=== PATIENT | female | born 1990 | race Two or more races ===

== ENCOUNTER 2024-04-08 14:29 | Emergency (ER) | payer MEDICAID, OTHER ==
[~2024-04-08] VITALS: Ht 162.6 cm; Wt 123.0 kg
[2024-04-08 14:39] VITALS: PULSE 80; RESP 16; O2SAT 100
[2024-04-08 15:16] LABS: Urine Bacteria None Seen /hpf (None Seen)
--- NOTE | 2024-04-08 15:16 | ED.PDOC ---
GI ASSESSMENT HPI Comments 33 y/o F, presents to the ED fpr CC of nausea/vomiting. Patient states, that she is currently and has been experiencing nausea/vomiting with associated LLQ pain since 5 weeks gestation. Patient relays, she has a PMHX of hyperemesis with past and believes current symptoms to be in association. Patient comments on, currently not having an [employer] provider. Patient denies abdominal pain, abdominal cramping, vaginal bleeding, or diarrhea. No other symptoms or modifying factors at this time. Chief Complaint: Nausea/Vomiting Time Seen by MD: 15:00 Reviewed Notes: Nurses Notes, Medications, Allergies Allergies: Coded Allergies: NO KNOWN ALLERGIES (Unverified , 04/08/24) Home Meds Active Scripts Nitrofurantoin Monohydrate Mac (Macrobid) 100 Mg Cap, 100 MG PO BID for 5 Days, #10 CAP Prov:PAUL HOOKS MD 04/08/24 Doxylamine-Pyridoxine (DICLEGIS) 1 Tab Tab, 1 TAB OR Q12HP PRN for 10 Days, #20 TAB Prov:PAUL HOOKS MD 04/08/24 Information Source: Patient Mode of Arrival: Ambulatory Timing: Days Duration: Since onset Prehospital treatment: None Quality: None Vomitus: Watery Stool: Normal Severity: Moderate Recent: None Recent Hx of: None Pain Location: LLQ Modifying Factors: Nothing Associated sign and symptoms: None Past Medical History PAST MEDICAL HISTORY: Denies Surgical History: Denies all surgeries [employer] History: Unknown Family History Family History: Unknown Social History Smoker: Non-Smoker Alcohol: Denies ETOH Use Drugs: Denies Drug Use Lives In: Home Constitutional: denies: chills, diaphoresis, fatigue, fever, malaise, sweats, weakness, others EENTM: denies: blurred vision, double vision, ear bleeding, ear discharge, ear drainage, ear pain, ear ringing, eye pain, eye redness, hearing loss, mouth pain, mouth swelling, nasal discharge, nose bleeding, nose congestion, nose pain, photophobia, tearing, throat pain, throat swelling, voice changes, others Respiratory: denies: cough, hemoptysis, orthopnea, SOB at rest, shortness of breath, SOB with excertion, stridor, wheezing, others Cardiovascular: denies: chest pain, dizzy spells, diaphoresis, Dyspnea on exertion, edema, irregular heart beat, left arm pain, lightheadedness, palpitations, PND, syncope, others Gastrointestinal: reports: nausea, vomiting; denies: abdomen distended, abdominal pain, blood streaked bowels, constipated, diarrhea, dysphagia, difficulty swallowing, hematemesis, melena, poor appetite, poor fluid intake, rectal bleeding, rectal pain, others Genitourinary: denies: abnormal vagina bleeding, burning, dyspareunia, dysuria, flank pain, frequency, hematuria, incontinence, pain, , vagina discharge, urgency, others Neurological: denies: dizziness, fainting, headache, left sided numbness, left sided weakness, numbness, paresthesia, pre-existing deficit, right sided numbness, right sided weakness, seizure, speech problems, tingling, tremors, weakness, others Musculoskeletal: denies: back pain, gout, joint pain, joint swelling, muscle pain, muscle stiffness, neck pain, others Integumetry: denies: bruises, change in color, change in hair/nails, dryness, laceration, lesions, lumps, rash, wounds, others Allergic/Immunocompromised: denies: Difficulty Healing, Frequent Infections, Hives, Itching, others Hematologic/Lymphatic: denies: anemia, blood clots, easy bleeding, easy bruising, swollen glands, others Endocrine: denies: excessive hunger, excessive sweating, excessive thirst, excessive urination, flushing, intolerance to cold, intolerance to heat, unexplained weight gain, unexplained weight loss, others Psychiatric: denies: anxiety, bipolar disorder, depression, hopeless, panic disorder, schizophrenia, sleepless, suicidal, others All Other Systems: Reviewed and Negative Physical Exam General Appearance: No Apparent Distress HEENT: Normal ENT Inspection, Pharynx Normal, TMs Normal Neck: Full Range of Motion, Non-Tender, Normal, Normal Inspection Respiratory: Chest Non-Tender, Lungs Clear, No Accessory Muscle Use, No Respiratory Distress, Normal Breath Sounds Cardiovascular: No Edema, No JVD, No Murmur, No Gallop, Normal Peripheral Pulses, Regular Rate/Rhythm Breast Exam: Deferred Gastrointestinal: No Organomegaly, Non Tender, No Pulsatile Mass, Normal Bowel Sounds, Soft Genitalia: Deferred Pelvic: Deferred Rectal: Deferred Extremities: No calf tenderness, Normal capillary refill, Normal inspection, Normal range of motion, Non-tender, No pedal edema Musculoskeletal : Apperance: Normal Neurologic: Alert, peanut butter maker II-XII nml as Tested, No Motor Deficits, Normal Affect, Normal Mood, No Sensory Deficits Cerebellar Function: Normal Reflexes: Normal Skin: Dry, Normal Color, Warm Lymphatic: No Adenopathy Was a procedure done? Was a procedure done?: No GI differential Dx Differential Diagnosis: Gastritis/PUD, Gastroenteritis, Electrolyte Imbalance, Food Poisoning, Bacterial, Viral X-Ray, Labs, Meds, VS Vital Signs Date Time Temp Pulse Resp B/P (MAP) Pulse Ox O2 Delivery O2 Flow Rate FiO2 04/08/24 17:04 98.5 84 16 115/68 (84) 100 98.5 04/08/24 14:39 80 16 100 Room Air* 0 21 04/08/24 14:39 98.3 80 16 113/72 (86) 100 04/08/24 14:39 98.3 80 16 113/72 (86) 100 98.3 Lab Test 04/08/24 14:40 Range/Units Urine Color Light-yellow Yellow Urine Clarity Turbid H Clear Urine pH 5.5 5.0-9.0 Urine Specific [place] 1.017 1.001-1.035 Urine Protein Negative Negative Urine Ketones Trace Negative Urine Blood Negative Negative /uL Urine Nitrite Negative Negative Urine Bilirubin Negative Negative Urine Urobilinogen Normal Negative mg/dL Urine Leukocyte Esterase 3+ Negative /uL Urine RBC 4 0 - 4 /hpf Urine Microscopic WBC 14 H 0-5 /HPF Urine Squamous Epithelial Cells Few <5 /hpf Urine Bacteria None seen None Seen /hpf Urine Mucus Few None Seen Urine Yeast (Budding) Occasional None Seen /hpf Urine Glucose Normal Normal mg/dL Urine Test Positive Negative Pelvic ultrasound shows: IMPRESSION: IUP single live fetus 7 weeks and 3 days AUA corresponding to an CAROLYN of 11/22/2024. Small subchorionic hematoma is present. Close clinical and sonographic follow-up advised. The urine test is positive for UTI The patient was being discharged with a prescription of Macrobid as well as medication for the nausea and vomiting The patient was to follow up with her OBGYN The patient will return to the emergency department's condition worsens. Images Reviewed?: Images reviewed and evaluated by me Time of 1ST Reevaluation: 15:30 Reevaluation 1ST: Unchanged Patient Education/Counseling: Diagnosis, Treatment, Prognosis, Need For Follow Up Family Education/Counseling: No Family Present Additional Information - I reviewed the following notes from patient's past medical encounters: NONE - The following tests were ordered, and results were reviewed by me: UA, TEST URINE, OB US - I reviewed and agreed with the following test results read by other provider: OB US - I discussed treatments and results with medical personnel and: FAMILY Departure 1 Departure Time of Disposition: 17:13 Impression: Primary Impression: Hyperemesis gravidarum Additional Impression: UTI in Qualified Codes: O23.41 - Unspecified infection of urinary tract in , first trimester Disposition: HOME / SELF CARE / HOMELESS Condition: Fair e-Prescriptions Nitrofurantoin Monohydrate Mac (Macrobid) 100 Mg Cap 100 MG PO BID for 5 Days, #10 CAP Prov: PAUL HOOKS MD 04/08/24 Doxylamine-Pyridoxine (DICLEGIS) 1 Tab Tab 1 TAB OR Q12HP PRN for 10 Days, #20 TAB Prov: PAUL HOOKS MD 04/08/24 Discharged With: Self Critical Care Note Critical Care Time?: No Stability Stability form required: No Heart Score Heart Score: Heart Score Response (Comments) Value History N/A 0 EKG N/A 0 Age N/A 0 Risk Factors N/A 0 Troponin N/A 0 Total 0 I personally scribed for PAUL HOOKS MD ([email or web address]) on 04/08/24 at 15:16. Electronically submitted by Sveta Gayle ([email or web address]). I personally scribed for PAUL HOOKS MD ([email or web address]) on 04/08/24 at 15:40. Electronically submitted by Sveta Gayle ([email or web address]). PAUL HOOKS MD Apr 08, 2024 15:16
[2024-04-08 15:26] LABS: Urine Blood Negative /uL (Negative); Urine Budding Yeast OCCASIONAL /hpf (None Seen); Urine Clarity Turbid (Clear); Urine Color Light-Yellow (Yellow); Urine Mucus FEW (None Seen); Urine Protein, UAD Negative (Negative); Urine Specific Gravity 1.017 (1.001-1.035); Urine Squamous Epithelial Cell FEW /hpf (<5); Urine Urobilinogen Normal (Negative); Urine WBC 14 /HPF (0-5); Urine pH 5.5 (5.0-9.0)
--- NOTE | 2024-04-08 16:11 | DVH ---
OB ULTRASOUND <14 WEEKS: HISTORY: pain TECHNIQUE: Multiple real-time grayscale sonographic images of the pelvis with duplex Doppler color f low, spectral and M-mode analysis. TRANSDUCERS: Transabdominal and transvaginal COMPARISON: None FINDINGS: The uterus measures 12.5 x 6.8 x 6.6 cm The cervix is not visualized Right ovary measures 3.7 x 2.6 x 3.4 cm with normal Doppler color flow. Right ovarian corpus luteal c yst measures 2.6 cm. Left ovary measures 2.5 x 2.0 x 2.0 cm with normal Doppler color flow. IUP single fetus at 7 weeks and 3 days average ultrasound age based on mean crown-rump length of 1.0 1 cm and gestational sac size of 2.70 cm heart rate detected at 143 beats per minute. Yolk sac is present. Amniotic fluid is subjectively within normal limits Lupe-gestational space: Small hypoechoic region is present adjacent to the gestational sac measuring 1.6 cm likely representing a small subchorionic hematoma. IMPRESSION: IUP single live fetus 7 weeks and 3 days AUA corresponding to an CAROLYN of 11/22/2024. Small subchorionic hematoma is present. Close clinical and sonographic follow-up advised.
[2024-04-08] MEDS: ONDANSETRON ODT 4 MG TAB PO ONE (17:03)
[2024-04-08 17:04] VITALS: BP 115/68; PULSE 84; RESP 16; TEMP 98.5; O2SAT 100
[2024-04-08] MEDS ORDERED: DOXY10TA OR (17:13)
[2024-04-08] MEDS ORDERED: NITR-87 PO (17:19)
== END 2024-04-08 17:15 | disposition home or self-care (01) ==
LOC: ER 14:29
DX: O21.0 Mild hyperemesis gravidarum (principal); O23.41 Unspecified infection of urinary tract in pregnancy, first trimester; N39.0 Urinary tract infection, site not specified; Z3A.01 Less than 8 weeks gestation of pregnancy
CPT/HCPCS: 76801; 76817; 81001; 81025